=== PATIENT | male | born 1960 | race Caucasian/White ===

== ENCOUNTER → 2019-09-30 07:45 | Outpatient (CLI) | payer OTHER, SELFPAY ==
--- NOTE | 2019-09-30 07:49 | DI.RAD.S_ITS ---
PROCEDURE: XR LUMBAR SPINE MIN 4V INDICATIONS: Lbp TECHNIQUE: 5 views of the lumbar spine were acquired. COMPARISON: None. FINDINGS: Bones: 5 nonrib-bearing vertebrae are present. There is normal bony alignment. No vertebral body compression fractures. No suspicious bony lesions. Multilevel disc space narrowing and endplate osteophyte formation, worst at L3-L4, L4-L5, and L5-S1. Facet hypertrophy throughout the mid and lower lumbar spine. Soft tissues: Overlying bowel gas pattern is normal. No suspicious soft tissue calcifications. IMPRESSION: Multilevel degenerative disc and facet disease. No acute fracture. No osseous lesion. If symptoms and/or clinical suspicion for pathology persist, further assessment with repeat, or advanced imaging (e.g., CT, MRI, or bone scan) may be helpful for further assessment. Dictated by: Elle De Leon M.D. on 09/30/2019 at 8:19 Approved by: Elle De Leon M.D. on 09/30/2019 at 8:20
== END ==
PROVIDERS: PCP Family Medicine; Referring Provider Physical Medicine & Rehabilitation; Visit Provider Physical Medicine & Rehabilitation
DX: M54.40 Lumbago with sciatica, unspecified side (principal); M47.816 Spondylosis without myelopathy or radiculopathy, lumbar region
CPT/HCPCS: 72110

== ENCOUNTER → 2019-10-31 09:13 | Outpatient (CLI) | payer OTHER, SELFPAY ==
[2019-11-02 11:10] LABS: COVID19 Sendout Not Detected (Not Detect)
== END ==
PROVIDERS: PCP Family Medicine; Visit Provider Physician Assistant
DX: Z01.812 Encounter for preprocedural laboratory examination (principal)
CPT/HCPCS: 87635

== ENCOUNTER 2019-11-03 14:02 | Outpatient (CLI) | payer OTHER, SELFPAY ==
[2019-11-03] VITALS (8 sets, daily range): BP systolic 109–129; BP diastolic 71–91; PULSE 70–79; RESP 15–17; TEMP 36.9; O2SAT 94–96
--- NOTE | 2019-11-03 14:06 | DI.RAD.S_ITS ---
PROCEDURE: PAIN L INTERLAMINAR/CAUDAL INJ INDICATIONS: SPONDYLOSIS COMPARISON: [facility], CR, XR LUMBAR SPINE MIN 4V, 09/30/2019, 6:59. FINDINGS: Fluoroscopic spot filming was performed to verify placement of spinal needles at the L4-L5 on level(s) the right, as labeled on the films. Appropriate location(s) of the needle tip(s) was confirmed by injection of iodinated contrast. IMPRESSION: Fluoroscopy for pain management. Dictated by: Katty Knox M.D. on 11/03/2019 at 16:33 Approved by: Katty Knox M.D. on 11/03/2019 at 16:33
--- NOTE | 2019-11-03 15:04 | PC.NURSE ---
Sky arrived and is A&O, Romulo PONCE pain log reviewed with patient he has no questions or concerns at this time.
[2019-11-03] MEDS: fentaNYL 100 MCG/2 ML INJ 50 MCG IV (15:15)
[2019-11-03] MEDS: MIDAZOLAM 5 MG/5 ML VIAL IV (15:15)
--- NOTE | 2019-11-03 15:16 | P.PCN_ITS ---
Date/Time/Diagnoses Date of procedure: 11/03/19 Time of procedure: 15:17 Pre-procedure diagnosis: 1. HNP WITH RADICULAR FEATURES, 2. MULTILEVEL CENTRAL STENOSIS, Post-procedure diagnosis: same Procedure Notes Procedure: 1. FLUOROSCOPICALLY GUIDED CONTRAST CONTROLLED INTERLAMINAR EPIDURAL STEROID INJECTION - para right L4/5 Indications: The patient is referred by for treatment of Bilateral Foraminal Stenosis R>L LE symptoms. Physician: Andrew Morrow Total Fluoroscopy time (seconds): 8 Total sedation minutes: 15 Complications: none Procedure in detail & Post-procedure care: FINDINGS Multilevel Central Spinal Stenosis with Nerve Root Compression DESCRIPTION OF PROCEDURE Fluoroscopically guided, contrast-controlled L4/5 translaminar epidural steroid injection. Following review of allergy and review of potential side effects and complications, including, but not necessarily limited to, infection, allergic reaction, local tissue breakdown, temporary as well as permanent nerve injury, paralysis, stroke and possible , the patient indicated that the patient understood and agreed to proceed. An informed consent document was signed by the patient, witnessed by a nurse, and placed in the patient's chart. Additionally, other treatment options including modalities, medications, and physical therapy were reviewed with the patient. After review of previous anaesthesic history and IV conscious sedation the patient was deemed safe to proceed with today?s procedure with IV conscious sedation as ASA class II designation. Safety time-out was performed to confirm patient ID, procedure to be performed and site of procedure. IV sedation was accomplished with a combination of 4mg of Versed and 50mcg of Fentanyl was administered by the RN after DO order, titrated to patient comfort during the course of the procedure while the patient remained responsive to all verbal commands In the prone position, following sterile prep and drape of the lumbar region, the L4/5 translaminar space was identified fluoroscopically. The skin was anesthetized via a 25-gauge, 1.5-inch needle with 1% lidocaine solution. At this point, a 22-gauge short bevel spinal needle was atraumatically introduced and advanced under fluoroscopic guidance into the region of the L4/5 translaminar space. Depth was confirmed on lateral view. Radiological data, including multiple fluoroscopic views of the lumbar spine, reveal a spinal needle at the L4/5 translaminar space. Lateral views then show placement of the needle in the epidural space. Subsequent views show contrast material flowing superiorly and inferiorly in the epidural space. No vascular or intrathecal uptake is observed. At this point, using loss of resistance technique with saline and air, the epidural space was entered. This was confirmed following negative aspiration with injection of approximately 1.5 cc of Isovue 200, showing excellent epidural flow without vascular or intrathecal uptake. At this point, 1 cc of 1% lidocaine solution combined with 3cc or 20mg of dexamethasone and 6mg betamethasone was injected without incident. The patient tolerated the procedure well without signs or symptoms of complications prior to transfer to the recovery area continued monitoring without incident. The patient was then transferred to the recovery area where they were observed for an appropriate period of time after the injection. The patient reported a VAS score of 8 prior to the procedure and a post- procedure VAS of 0. POST OP INSTRUCTIONS The patient was provided a Pain Log to continue to record their response to the target-specific procedure prior to follow-up visit with their referring physician. Additionally, specific post-injection care instructions and a contact number to our office were provided if concerns arise regarding possible complications associated with the procedure are suspected.
[2019-11-03] MEDS: IOPAMIDOL 15 ML VIAL 3 ML INJ (15:25)
[2019-11-03] MEDS: BUPIVACAINE 0.25% (PF) VIAL 2 ML INJ (15:25)
[2019-11-03] MEDS: BETAMETHASONE 30 MG/5 ML MDV 6 MG INJ (15:25)
[2019-11-03] MEDS: DEXAMETHASONE 10 MG/ML VIAL 20 MG INJ (15:25)
--- NOTE | 2019-11-03 15:38 | PC.NURSE ---
Pt tolerated procedure well. Vitals stable upon transfer to post procedure room with report given to DAMON Ayala. IV Fentanyl and Versed given by Nelsy Ruiz RN. All other meds administered by Dr. Morrow.
== END 2019-11-03 15:50 | disposition home or self-care (01) ==
LOC: RAD 14:05
PROVIDERS: PCP Family Medicine; Referring Provider Physical Medicine & Rehabilitation; Visit Provider Physical Medicine & Rehabilitation
DX: M51.16 Intervertebral disc disorders with radiculopathy, lumbar region (principal); M48.061 Spinal stenosis, lumbar region without neurogenic claudication
CPT/HCPCS: 62323; 99152; 99153; J0702; J1100; J2250; J3010